=== PATIENT | male | born 2005 ===

== ENCOUNTER 2024-02-20 04:14 | Outpatient (CLI) | payer SELFPAY ==
[2024-02-20 20:19] LABS: Hepatitis B Surface Ag Negative (Negative)
[2024-02-20 20:55] LABS: Hep B Core Antibody Negative (Negative)
[2024-02-24 11:32] LABS: TB Interpretation Negative (Negative)
== END 2024-02-20 04:15 | disposition home or self-care (01) ==
PROVIDERS: PCP Family Medicine; Visit Provider Family Medicine
DX: Z00.00 Encounter for general adult medical examination without abnormal findings (principal)
CPT/HCPCS: 36415; 86704; 87340; 86480